=== PATIENT | male | born 1980 | race Hispanic/Latino ===

== ENCOUNTER 2018-09-11 19:11 | Emergency (ER) | payer BC ==
[2018-09-11] MEDS ORDERED: ONDANSETRON ODT 4 MG TAB ONE (19:50)
[2018-09-11] MEDS ORDERED: HYDROCODONE/ACETAMINOPHEN 5/325 MG TAB ONE (19:51)
== END 2018-09-11 20:22 | disposition home or self-care (01) ==
LOC: EDH 19:11
DX: S00.83XA Contusion of other part of head, initial encounter (principal); J32.9 Chronic sinusitis, unspecified; Z88.0 Allergy status to penicillin; W20.8XXA Other cause of strike by thrown, projected or falling object, initial encounter; Y93.89 Activity, other specified; Y92.69 Other specified industrial and construction area as the place of occurrence of the external cause; Y99.8 Other external cause status
CPT/HCPCS: 70450

== ENCOUNTER 2018-11-16 03:46 | Emergency (ER) | payer BC, OTHER ==
[2018-11-16] MEDS ORDERED: KETOROLAC TROMETHAMINE 60 MG/2 ML VIAL ONE (04:46)
[2018-11-16] MEDS ORDERED: DIAZEPAM 2 MG TAB ONE (04:46)
[2018-11-16 04:59] LABS: APPEARANCE,URINE Clear (CLEAR); BILIRUBIN,URINE Negative (NEGATIVE); COLOR,URINE Yellow (YELLOW); GLUCOSE, URINE (UA) Negative (NEGATIVE); KETONES,URINE Negative (NEGATIVE); LEUKOCYTE ESTERASE ,URINE Negative (NEGATIVE); NITRATE,URINE Negative (NEGATIVE); OCCULT BLOOD,URINE Negative (NEGATIVE); PROTEIN,URINE Negative (NEGATIVE)
[2018-11-16 05:07] LABS: AMPHET/METH SCREEN,URINE NEGATIVE (NEGATIVE); BARBITURATE SCREEN, URINE NEGATIVE (NEGATIVE); BENZODIAZEPINES SCREEN,URINE NEGATIVE (NEGATIVE); CANNABINOID SCREEN,URINE NEGATIVE (NEGATIVE); COCAINE SCREEN,URINE NEGATIVE (NEGATIVE); OPIATE SCREEN,URINE NEGATIVE (NEGATIVE); PHENCYCLIDINE SCREEN,URINE NEGATIVE (NEGATIVE)
== END 2018-11-16 06:05 | disposition home or self-care (01) ==
LOC: EDH 03:46
DX: M54.5 Low back pain (principal); Z88.0 Allergy status to penicillin; Z72.0 Tobacco use
CPT/HCPCS: 72100; 80305; 81003; 96372; 99285; J1885

== ENCOUNTER 2019-01-21 20:59 | Emergency (ER) | payer OTHER | END 2019-01-21 21:46 | disposition home or self-care (01) | LOC: EDH 20:59 | DX: R19.7 Diarrhea, unspecified (principal); R10.9 Unspecified abdominal pain; R50.9 Fever, unspecified; Z88.0 Allergy status to penicillin; Z72.0 Tobacco use | CPT/HCPCS: 87046; 87177 ==

== ENCOUNTER 2019-05-12 21:27 | Emergency (ER) | payer OTHER ==
[2019-05-12 22:07] LABS: APPEARANCE,URINE Clear (CLEAR); BILIRUBIN,URINE Negative (NEGATIVE); COLOR,URINE Dark Yellow (YELLOW); GLUCOSE, URINE (UA) Negative (NEGATIVE); KETONES,URINE Negative (NEGATIVE); LEUKOCYTE ESTERASE ,URINE Negative (NEGATIVE); NITRATE,URINE Negative (NEGATIVE); OCCULT BLOOD,URINE Negative (NEGATIVE); PH,URINE 5.5 (5.0-8.0); PROTEIN,URINE Trace mg/dL (NEGATIVE)
[2019-05-12 22:18] LABS: BACTERIA,URINE Few /HPF (None Seen); MUCUS,URINE Moderate LPF (None Seen); RBC,URINE 0-1 /HPF (0-1); SQUAMOUS EPITHELIAL CELL,UR 0-2 /HPF (0-2)
[2019-05-12] MEDS ORDERED: SODIUM CHLORIDE 0.9% 1000ML 1,000 ML IV ONE (22:38)
[2019-05-12 22:47] LABS: BASOPHILS % (AUTO) 0.3 % (0.0-5.0); EOSINOPHILS % (AUTO) 5.3 % (0.0-8.0); HEMATOCRIT 43.3 % (42-54); LYMPHOCYTES % (AUTO) 18.8 % (21.0-51.0); MEAN CORPUSCULAR HEMOGLOBIN 30.4 pg (27.0-33.0); MEAN CORPUSCULAR HGB CONC 33.3 g/dL (32.0-36.0); MEAN CORPUSCULAR VOLUME 91.5 fL (79-99); MONOCYTES % (AUTO) 7.9 % (3.0-13.0); NEUTROPHILS % (AUTO) 67.5 % (40.0-77.0); PLATELET COUNT (AUTO) 315 K/uL (130-400); RED BLOOD CELL COUNT(AUTO) 4.73 MIL/uL (4.50-6.20); RED CELL DISTRIBUTION WIDTH 13.1 % (11.0-15.5); WHITE BLOOD COUNT (AUTO) 10.1 K/uL (4.8-10.8)
[2019-05-12 22:58] LABS: CREATININE 0.9 mg/dL (0.5-1.5); POTASSIUM 3.5 mmol/L (3.5-5.1)
[2019-05-12] MEDS ORDERED: ONDANSETRON HCL 4 MG/2 ML VIAL ONE (23:01)
[2019-05-12] MEDS ORDERED: KETOROLAC TROMETHAMINE 30MG/ML ONE (23:01)
[2019-05-12 23:03] LABS: ALBUMIN 3.5 g/dL (3.5-5.0); BILIRUBIN,TOTAL 0.2 mg/dL (0.2-1.0); TOTAL PROTEIN, SERUM 7.6 g/dL (6.0-8.3)
== END 2019-05-12 23:58 | disposition home or self-care (01) ==
LOC: EDH 21:27
DX: A08.4 Viral intestinal infection, unspecified (principal); R11.2 Nausea with vomiting, unspecified; Z88.0 Allergy status to penicillin; Z72.0 Tobacco use
CPT/HCPCS: 36415; 80053; 81001; 83690; 85025; 96361; 96374; 96375; 99284; J1885; J2405; J7030

== ENCOUNTER 2019-06-24 07:23 | Emergency (ER) | payer OTHER ==
[2019-06-24] MEDS ORDERED: TETANUS/DIPHTHERIA TOXOID [ADULT] 0.5 ML VIAL IM ONE (07:50)
[2019-06-24] MEDS ORDERED: KETOROLAC TROMETHAMINE 60 MG/2 ML VIAL ONE (08:12)
== END 2019-06-24 08:37 | disposition home or self-care (01) ==
LOC: EDH 07:23
DX: S93.401A Sprain of unspecified ligament of right ankle, initial encounter (principal); S80.811A Abrasion, right lower leg, initial encounter; M25.561 Pain in right knee; Z72.0 Tobacco use; Z88.0 Allergy status to penicillin; W18.39XA Other fall on same level, initial encounter; Y93.89 Activity, other specified; Y92.89 Other specified places as the place of occurrence of the external cause; Y99.8 Other external cause status
CPT/HCPCS: 29515; 73562; 73610; 90471; 90714; 96372; 99284; J1885

== ENCOUNTER 2019-11-07 18:48 | Inpatient (IN) | payer BC, OTHER ==
[~2019-11-07] VITALS: Ht 162.6 cm; Wt 93.6 kg
[2019-11-07 20:37] LABS: APPEARANCE,URINE Clear (CLEAR); BILIRUBIN,URINE Small (NEGATIVE); COLOR,URINE Dark Yellow (YELLOW); GLUCOSE, URINE (UA) Negative (NEGATIVE); KETONES,URINE 15 mg/dL (NEGATIVE); LEUKOCYTE ESTERASE ,URINE Negative (NEGATIVE); NITRATE,URINE Negative (NEGATIVE); OCCULT BLOOD,URINE Negative (NEGATIVE); PROTEIN,URINE POS 2+ mg/dL (NEGATIVE)
[2019-11-07 20:47] LABS: RAPID GROUP A STREP NEGATIVE (NEGATIVE)
[2019-11-07 20:54] LABS: BASOPHILS % (AUTO) 0.2 % (0.0-5.0); HEMATOCRIT 44.9 % (42-54); LYMPHOCYTES % (AUTO) 8.4 % (21.0-51.0); MEAN CORPUSCULAR HEMOGLOBIN 31.5 pg (27.0-33.0); MEAN CORPUSCULAR HGB CONC 35.6 g/dL (32.0-36.0); MEAN CORPUSCULAR VOLUME 88.4 fL (79-99); NEUTROPHILS % (AUTO) 81.2 % (40.0-77.0); PLATELET COUNT (AUTO) 235 K/uL (130-400); RED BLOOD CELL COUNT(AUTO) 5.08 MIL/uL (4.50-6.20); RED CELL DISTRIBUTION WIDTH 12.1 % (11.0-15.5); WHITE BLOOD COUNT (AUTO) 9.6 K/uL (4.8-10.8)
[2019-11-07] MEDS ORDERED: LIDOCAINE HCL-MPF 1% 2ML VIAL ONE (20:56)
[2019-11-07] MEDS ORDERED: ONDANSETRON HCL 4 MG/2 ML VIAL ONE (20:56)
[2019-11-07] MEDS ORDERED: CEFTRIAXONE SODIUM 1 GM ONE (20:57)
[2019-11-07] MEDS ORDERED: ACETAMINOPHEN EXTRA STRENGTH 500 MG TABLET ONE (20:57)
[2019-11-07 20:59] LABS: BACTERIA,URINE Few /HPF (None Seen); RBC,URINE 0-1 /HPF (0-1); SQUAMOUS EPITHELIAL CELL,UR Few /HPF (0-2); WBC,URINE 0-1 /HPF (0-1)
[2019-11-07 21:00] LABS: MUCUS,URINE Moderate LPF (None Seen)
[2019-11-07 21:05] LABS: CREATININE 0.8 mg/dL (0.5-1.5); POTASSIUM 3.9 mmol/L (3.5-5.1)
[2019-11-07 21:09] LABS: ALBUMIN 3.3 g/dL (3.5-5.0); BILIRUBIN,TOTAL 0.5 mg/dL (0.2-1.0); TOTAL PROTEIN, SERUM 8.5 g/dL (6.0-8.3)
[2019-11-07 21:13] LABS: ABG BASE EXCESS 2.5 mmol/L (-2.0-3.0); ABG HCO3 24.9 mmol/L (21.0-28.0); ABG OXYGEN SATURATION 98.7 % (95.0-99.0); ABG PCO2 32 mmHg (35-48)
[2019-11-07 21:27] LABS: B-TYPE NATRIURETIC PEPTIDE < 5 pg/mL (0-100)
[2019-11-07] MEDS ORDERED: DEXAMETHASONE SOD PHOSPHATE 10MG/ML 1ML VIAL ONE (23:15)
[2019-11-07] MEDS ORDERED: LEVOFLOXACIN 500 MG/D5W 100 ML 100 ML ONE (23:16)
[2019-11-08] MEDS ORDERED: SODIUM CHLORIDE 0.9% 1000ML 1,000 ML IV SCH (00:52)
[2019-11-08] MEDS ORDERED: DIPHENHYDRAMINE HCL 25 MG CAPSULE PO PRN (01:00)
[2019-11-08] MEDS ORDERED: NITROGLYCERIN 0.4 MG SL TAB SL PRN (01:00)
[2019-11-08] MEDS ORDERED: ONDANSETRON HCL 4 MG/2 ML VIAL IV PRN (01:00)
[2019-11-08] MEDS ORDERED: ALBUTEROL INHALER 90MCG/INH IH PRN (01:00)
[2019-11-08] MEDS ORDERED: SODIUM CHLORIDE 0.9% 1000ML 1,000 ML IV PRN (01:00)
[2019-11-08] MEDS ORDERED: ACETAMINOPHEN 325 MG TAB PO PRN (01:00)
[2019-11-08] MEDS ORDERED: SODIUM CHLORIDE 0.9% 1000ML 1,000 ML IV ONE (01:20)
[2019-11-08] MEDS ORDERED: ENOXAPARIN SODIUM 100 MG/1 ML SQ ONE (01:22)
[2019-11-08] MEDS ORDERED: IOHEXOL-350 75 ML VIAL IV ONE (01:33)
[2019-11-08] MEDS ORDERED: METHYLPREDNISOLONE SOD SUCC 40MG/ML 1ML IVP SCH (06:00)
[2019-11-08] MEDS ORDERED: METHYLPREDNISOLONE SOD SUCC 125MG/2ML VIAL ONE (06:21)
[2019-11-08 06:41] LABS: HEMATOCRIT 41.6 % (42-54); MEAN CORPUSCULAR HEMOGLOBIN 30.9 pg (27.0-33.0); MEAN CORPUSCULAR HGB CONC 34.9 g/dL (32.0-36.0); MEAN CORPUSCULAR VOLUME 88.7 fL (79-99); PLATELET COUNT (AUTO) 206 K/uL (130-400); RED BLOOD CELL COUNT(AUTO) 4.69 MIL/uL (4.50-6.20); WHITE BLOOD COUNT (AUTO) 6.1 K/uL (4.8-10.8)
[2019-11-08 07:29] LABS: INR 1.06 (0.85-1.15); PROTHROMBIN TIME 11.4 SEC (9.6-11.6)
[2019-11-08] MEDS ORDERED: PANTOPRAZOLE SODIUM 40 MG TABLET.DR ONE (08:20)
[2019-11-08 08:24] LABS: HEMOGLOBIN A1C 5.8 % (4.0-6.0)
[2019-11-08 08:36] LABS: ALBUMIN 2.9 g/dL (3.5-5.0); BILIRUBIN,TOTAL 0.4 mg/dL (0.2-1.0); CREATININE 0.8 mg/dL (0.5-1.5); MAGNESIUM 2.3 mg/dL (1.80-2.40); POTASSIUM 4.3 mmol/L (3.5-5.1); TOTAL PROTEIN, SERUM 7.7 g/dL (6.0-8.3)
[2019-11-08 08:44] LABS: BAND NEUTROPHILS % (MANUAL) 1 % (0-2); BASOPHILS % (MANUAL) 1 % (0-2); LYMPHOCYTES % (MANUAL) 6 % (22-44); MONOCYTES % (MANUAL) 3 % (2-9); PLATELET MORPHOLOGY COMMENT ADEQUATE; REACTIVE LYMPHOCYTES 1 % (0-0); SEGMENTED NEUTROPHILS % 88 % (40-70)
[2019-11-08] MEDS: PANTOPRAZOLE SODIUM 40 MG TABLET.DR PO SCH (09:00)
[2019-11-08 09:28] LABS: CRP QUANTITATIVE 177.1 mg/L (0.00-9.0)
[2019-11-08] MEDS ORDERED: NITROGLYCERIN 1GM/1 INCH PACKET TD ONE (18:45)
[2019-11-08] MEDS ORDERED: MORPHINE SULFATE 2 MG/ML 1ML SYG ONE (18:45)
[2019-11-08] MEDS: NITROGLYCERIN 1GM/1 INCH PACKET TD SCH (19:00)
[2019-11-08] MEDS ORDERED: ASPIRIN 325MG EC TAB 325 MG TABLET.DR PO SCH (20:00)
[2019-11-08] MEDS ORDERED: ACETAMINOPHEN EXTRA STRENGTH 500 MG TABLET ONE (20:58)
[2019-11-08] MEDS: ENOXAPARIN SODIUM 100 MG/1 ML SQ SCH (21:00)
[2019-11-08] MEDS: LEVOFLOXACIN 500 MG/D5W 100 ML 100 ML IV SCH (21:00)
[2019-11-08] MEDS ORDERED: METHYLPREDNISOLONE SOD SUCC 40MG/ML 1ML ONE (22:01)
[2019-11-08] MEDS ORDERED: LEVOFLOXACIN 500 MG/D5W 100 ML 100 ML ONE (22:01)
[2019-11-08 23:04] LABS: CREATINE KINASE, TOTAL 111 U/L (21-232); MYOGLOBIN 73 ng/mL (10-92); TROPONIN I < 0.04 ng/mL (0.00-0.06)
[2019-11-09] MEDS ORDERED: ENOXAPARIN SODIUM 100 MG/1 ML SQ ONE ×2 (01:07→09:59)
[2019-11-09] MEDS ORDERED: NITROGLYCERIN 1GM/1 INCH PACKET TD ONE ×3 (01:07→18:23)
[2019-11-09 07:23] LABS: CHOLESTEROL 157 mg/dL (<200); CREATINE KINASE, TOTAL 110 U/L (21-232); HDL CHOLESTEROL 19 mg/dL (29-71); LACTATE DEHYDROGENASE 296 U/L (81-234); LDL DIRECT 118 mg/dL (0-99); MYOGLOBIN 54 ng/mL (10-92); TRIGLYCERIDES 118 mg/dL (30-200); TROPONIN I < 0.04 ng/mL (0.00-0.06)
[2019-11-09] MEDS: ENOXAPARIN SODIUM 100 MG/1 ML SQ SCH ×2 (09:00→21:00)
[2019-11-09] MEDS: ASPIRIN 81MG TAB.CHEW PO SCH (09:00)
[2019-11-09] MEDS: PANTOPRAZOLE SODIUM 40 MG TABLET.DR PO SCH (09:00)
[2019-11-09] MEDS ORDERED: MORPHINE SULFATE 2 MG/ML 1ML SYG ONE (09:26)
[2019-11-09] MEDS ORDERED: ASPIRIN 81MG TAB.CHEW ONE (09:59)
[2019-11-09] MEDS ORDERED: PANTOPRAZOLE SODIUM 40 MG TABLET.DR ONE (10:00)
[2019-11-09] MEDS ORDERED: METHYLPREDNISOLONE SOD SUCC 40MG/ML 1ML ONE ×2 (10:00→18:23)
[2019-11-09] MEDS ORDERED: ACETAMINOPHEN 325 MG TAB ONE ×2 (10:25→19:49)
[2019-11-09] MEDS: NITROGLYCERIN 1GM/1 INCH PACKET TD SCH ×2 (11:00→19:00)
--- NOTE | 2019-11-09 13:25 | NUR ---
UNABLE TO DO INITIAL CASE MANAGEMENT ASSESSMENT- PHONE CALLS X2 TO BOTH NUMBERS IN CHART- " NOT ABLE TO RECEIVE CALLS AT THIS TIME " CM TO FOLLOW Addendum: 11/09/19 at 1326 by AJ CONRAD RN CM Amended: Links added.
[2019-11-09] MEDS: METHYLPREDNISOLONE SOD SUCC 40MG/ML 1ML IVP SCH ×2 (14:00→22:00)
[2019-11-09] MEDS: LEVOFLOXACIN 500 MG/D5W 100 ML 100 ML IV SCH (21:00)
[2019-11-09] MEDS ORDERED: LEVOFLOXACIN 500 MG/D5W 100 ML 100 ML ONE (23:40)
[2019-11-10] VITALS (7 sets, daily range): BP systolic 97–132; BP diastolic 50–73
[2019-11-10] MEDS: NITROGLYCERIN 1GM/1 INCH PACKET TD SCH ×2 (02:05→08:08)
[2019-11-10] MEDS: MORPHINE SULFATE 2 MG/ML 1ML SYG IVP PRN ×2 (02:06→21:26)
[2019-11-10] MEDS: METHYLPREDNISOLONE SOD SUCC 40MG/ML 1ML IVP SCH ×3 (05:01→21:06)
--- NOTE | 2019-11-10 07:19 | NUR ---
BEDSIDE REPORT GIVEN TO DENNIS CLANCY; VSS; NO S/S ACUTE DISTRESS NOTED; BED LOW CALL CARPENTER WITHIN REACH; RELINQUISHED PT CARE AT THIS TIME
--- NOTE | 2019-11-10 08:00 | NUR ---
ENCOUNTERED PATIENT ON PRONE POSITION, COUGHING, AND C/O SOB BUT VOICED THAT HE FEELS BETTER THAN WHEN HE CAME IN. O2 INCREASED TO 4L. PATIENT IMMEDIATELY VERBALIZED RELIEF. FULL ASSESSMENT DONE. MAINTAINED ENHANCED ISOLATION FOR POSITIVE COVID-19. ENCOURAGED HANDWASHING. CALL LIGHT WITHIN REACH.
[2019-11-10 08:07] LABS: CRP QUANTITATIVE 280.4 mg/L (0.00-9.0)
[2019-11-10] MEDS: ASPIRIN 81MG TAB.CHEW PO SCH (08:08)
[2019-11-10] MEDS: PANTOPRAZOLE SODIUM 40 MG TABLET.DR PO SCH (08:08)
[2019-11-10] MEDS: ENOXAPARIN SODIUM 100 MG/1 ML SQ SCH ×2 (08:09→21:06)
[2019-11-10] MEDS: ACETAMINOPHEN 325 MG TAB PO PRN (08:09)
--- NOTE | 2019-11-10 12:54 | NUR ---
DR. ANGUIANO IS IN TO SEE PATIENT.
[2019-11-10] MEDS: BENZONATATE 100 MG CAPSULE PO PRN ×2 (13:33→23:56)
--- NOTE | 2019-11-10 13:40 | NUR ---
PT CALLED FOR HELP. VOICED THAT HE CANNOT BREATHE. FOUND PATIENT STANDING BY HIS BED, O2 AT 4L PER NASAL CANNULA, DYSPNEIC, AND DIAPHORETIC. ASSISTED PATIENT BACK TO BED. HE SAT AT THE EDGE OF BED WHILE I ENCOURAGED DEEP BREATHING. O2 SAT WAS 96% AT 4L. INCREASED FLOW TO 8L REQUESTED BY PATIENT. PATIENT VOICED THAT HE HAS HX OF ANXIETY AND PTSD. I REASSURED PATIENT THAT HIS O2 IS OK. HE STARTED CALMING DOWN, DEEP BREATHING, AND HE FELT BETTER. I KEPT HIM ON 4L O2.
--- NOTE | 2019-11-10 14:59 | NUR ---
CM NOTE/ATTEMPTED IA UNSUCCESSFUL PATIENT VERY SHORT OF BREATH PER PRIMARY NURSE, UNABLE TO TOLERATE CONVERSATIONS AT TIMES. STACIA SAVAGE ON FACE SHEET CALLED, NO ANSWER.IA PENDING, CM TO FOLLOW UP ACCORDINGLY.
[2019-11-10] MEDS: LEVOFLOXACIN 500 MG/D5W 100 ML 100 ML IV SCH (21:06)
[2019-11-11 04:12] VITALS: BP 123/72
--- NOTE | 2019-11-11 07:14 | NUR ---
BEDSIDE REPORT GIVEN TO DENNIS CLANCY; PT REMAINS ON NONREBREATHER SINCE MIDNIGHT; PT HAS SEVERE ANXIETY ATTACKS; OTHERWISE NO S/S ACUTE DISTRESS NOTED; RELINQUISHED PT CARE AT THIS TIME
[2019-11-11 07:48] LABS: BASOPHILS % (AUTO) 0.2 % (0.0-5.0); HEMATOCRIT 39.6 % (42-54); LYMPHOCYTES % (AUTO) 2.7 % (21.0-51.0); MEAN CORPUSCULAR HEMOGLOBIN 30.7 pg (27.0-33.0); MEAN CORPUSCULAR HGB CONC 34.3 g/dL (32.0-36.0); MEAN CORPUSCULAR VOLUME 89.4 fL (79-99); MONOCYTES % (AUTO) 2.9 % (3.0-13.0); NEUTROPHILS % (AUTO) 93.7 % (40.0-77.0); PLATELET COUNT (AUTO) 351 K/uL (130-400); RED BLOOD CELL COUNT(AUTO) 4.43 MIL/uL (4.50-6.20); RED CELL DISTRIBUTION WIDTH 12.4 % (11.0-15.5); WHITE BLOOD COUNT (AUTO) 19.7 K/uL (4.8-10.8)
[2019-11-11 08:05] LABS: ALBUMIN 2.7 g/dL (3.5-5.0); BILIRUBIN,TOTAL 0.5 mg/dL (0.2-1.0); CREATININE 0.8 mg/dL (0.5-1.5); TOTAL PROTEIN, SERUM 7.9 g/dL (6.0-8.3)
[2019-11-11 08:18] VITALS: BP 125/58
[2019-11-11] MEDS ORDERED: GUAIFENESIN-CODEINE 5 ML SYRUP ONE (08:41)
[2019-11-11] MEDS: PANTOPRAZOLE SODIUM 40 MG TABLET.DR PO SCH (08:48)
[2019-11-11] MEDS: METHYLPREDNISOLONE SOD SUCC 40MG/ML 1ML IVP SCH ×3 (08:48→20:54)
[2019-11-11] MEDS: ASPIRIN 81MG TAB.CHEW PO SCH (08:48)
[2019-11-11] MEDS: ENOXAPARIN SODIUM 100 MG/1 ML SQ SCH ×2 (08:49→20:53)
[2019-11-11 09:37] LABS: CRP QUANTITATIVE 338.8 mg/L (0.00-9.0)
[2019-11-11] MEDS ORDERED: DOXYCYCLINE 100MG+NS 250ML 250 ML IV SCH (10:00)
--- NOTE | 2019-11-11 10:00 | NUR ---
INFORMED DR. ANGUIANO THAT PATIENT IS NOW ON NRB. O2 SAT: 96%. PATIENT DID MENTION YESTERDAY THAT HE HAS HX OF PTSD AND ALSO JUST QUIT CHRONIC SMOKING. MD ORDERED FOR LIBRIUM AND NICOTINE PATCH. PT ALSO COMPLAINED THAT TESSALON PERLS ARE NOT WORKING AND REQUESTED FOR SOMETHING STRONGER. MD ORDERED FOR ROBITUSSIN WITH CODEINE. WILL ALSO REPEAT CXRAY FOR HYPOXIA. REPORTED TO MD LATEST LAB RESULTS.
[2019-11-11] MEDS: CHLORDIAZEPOXIDE HCL 25 MG CAP PO SCH ×2 (10:15→20:51)
--- NOTE | 2019-11-11 11:00 | NUR ---
RT WEANED PT OFF NRB. O2 SAT NOW 95% ON VENTI-MASK AT 50%.
[2019-11-11] MEDS ORDERED: CHLORDIAZEPOXIDE HCL 25 MG CAP ONE (11:08)
[2019-11-11] MEDS: NICOTINE 21 MG/ 24 HR PATCH TD SCH (11:11)
[2019-11-11 12:00] VITALS: BP 117/70
[2019-11-11] MEDS: GUAIFENESIN-CODEINE 5 ML SYRUP PO PRN ×2 (15:50→21:50)
[2019-11-11 16:00] VITALS: BP 123/67
--- NOTE | 2019-11-11 16:09 | NUR ---
CM NOTE CM attempted to call both numbers on facesheet. Message "Not accepting calls". Unable to leave message. Per nursing, pt still with dyspnea and unable to answer questions. States pt had been making calls previously from phone. Nursing to record number if or when family calls. Pt is self pay and from home per medical record. Plan to home with possible home o2 needs.
--- NOTE | 2019-11-11 16:51 | NUR ---
o2 sat: 97% on venti-mask 50% fio2. Patient is resting on bed in a high hines's position.
[2019-11-11 19:10] VITALS: BP 127/72
[2019-11-11] MEDS: DOXYCYCLINE HYCLATE 100 MG TABLET PO SCH (20:51)
[2019-11-11] MEDS: LEVOFLOXACIN 500 MG/D5W 100 ML 100 ML IV SCH (20:51)
[2019-11-11] MEDS ORDERED: CHLORDIAZEPOXIDE HCL 25 MG CAP PO SCH (21:00)
--- NOTE | 2019-11-11 22:00 | NUR ---
PT O2 97%. COUGHING NOTED. GIVEN PRN ROBITUSSIN WITH CODEINE. STATES IS ABLE TO SLEEP WITH THAT MEDICATION. SOB. ON VENTI MASK. SOB. CONTINUES ON ABTS.
[2019-11-11 23:21] VITALS: BP 127/69
[2019-11-12 03:05] VITALS: BP 139/81
--- NOTE | 2019-11-12 04:00 | NUR ---
PLASMA INITIATED AT THIS TIME. PT DID EXPERIENCE SOB. WAS NOT TRANSFUSION RELATED. PT STATES HE EXPERIENCES THIS EVERY FEW HOURS. O2 LEVEL DROPPED TO 85%. NON REBREATHER 15L AT 100% COUGH MEDICATION PRN GIVEN. PT WENT UP TO 95%.
[2019-11-12] MEDS: GUAIFENESIN-CODEINE 5 ML SYRUP PO PRN ×4 (04:27→22:46)
[2019-11-12] MEDS: METHYLPREDNISOLONE SOD SUCC 40MG/ML 1ML IVP SCH ×2 (06:00→15:11)
[2019-11-12 06:55] LABS: BASOPHILS % (AUTO) 0.1 % (0.0-5.0); HEMATOCRIT 37.8 % (42-54); LYMPHOCYTES % (AUTO) 5.4 % (21.0-51.0); MEAN CORPUSCULAR HEMOGLOBIN 31.3 pg (27.0-33.0); MEAN CORPUSCULAR HGB CONC 34.4 g/dL (32.0-36.0); MEAN CORPUSCULAR VOLUME 90.9 fL (79-99); MONOCYTES % (AUTO) 7.4 % (3.0-13.0); NEUTROPHILS % (AUTO) 86.5 % (40.0-77.0); PLATELET COUNT (AUTO) 388 K/uL (130-400); RED BLOOD CELL COUNT(AUTO) 4.16 MIL/uL (4.50-6.20); RED CELL DISTRIBUTION WIDTH 12.3 % (11.0-15.5); WHITE BLOOD COUNT (AUTO) 11.2 K/uL (4.8-10.8)
[2019-11-12] MEDS: ASPIRIN 81MG TAB.CHEW PO SCH (08:08)
[2019-11-12] MEDS: DOXYCYCLINE HYCLATE 100 MG TABLET PO SCH (08:09)
[2019-11-12] MEDS: CHLORDIAZEPOXIDE HCL 25 MG CAP PO SCH ×2 (08:10→22:23)
[2019-11-12] MEDS: ENOXAPARIN SODIUM 100 MG/1 ML SQ SCH ×2 (08:10→22:30)
[2019-11-12] MEDS: PANTOPRAZOLE SODIUM 40 MG TABLET.DR PO SCH (08:10)
[2019-11-12] MEDS: NICOTINE 21 MG/ 24 HR PATCH TD SCH (08:10)
[2019-11-12 08:36] LABS: ALBUMIN 2.5 g/dL (3.5-5.0); BILIRUBIN,TOTAL 0.4 mg/dL (0.2-1.0); CREATININE 0.8 mg/dL (0.5-1.5); CRP QUANTITATIVE 192.9 mg/L (0.00-9.0); POTASSIUM 4.1 mmol/L (3.5-5.1); TOTAL PROTEIN, SERUM 7.4 g/dL (6.0-8.3)
[2019-11-12 09:26] VITALS: BP 130/77
[2019-11-12] MEDS ORDERED: SODIUM CHLORIDE 0.9% 250 ML IV ONE (12:00)
[2019-11-12 12:23] VITALS: BP 117/61
--- NOTE | 2019-11-12 14:45 | NUR ---
CM NOTE/IA UNSUCCESSFUL PATIENT SOB AND NOT ABLE TO TALK TO ME PER PRIMARY NURSE. NUMBER ON FACESHEET FOR GIRLFRIEND NOT ACCEPTING CALLS. NURSE AWARE TO TAKE NUMBER DOWN OF FAMILY IF CALL COMES IN. CM TO FOLLOW UP ACCORDINGLY.
[2019-11-12 17:17] VITALS: BP 138/69
[2019-11-12 19:00] VITALS: BP 128/54
[2019-11-12] MEDS: ALBUTEROL INHALER 90MCG/INH IH SCH ×2 (19:00→23:19)
[2019-11-12 20:37] LABS: ABG BASE EXCESS 0.1 mmol/L (-2.0-3.0); ABG HCO3 23.6 mmol/L (21.0-28.0); ABG OXYGEN SATURATION 97.8 % (95.0-99.0); ABG PCO2 35 mmHg (35-48)
[2019-11-12] MEDS: LEVOFLOXACIN 500 MG/D5W 100 ML 100 ML IV SCH (22:23)
[2019-11-12] MEDS: DEXAMETHASONE SOD PHOSPHATE 4 MG/ML 1ML VIAL IV SCH (22:23)
[2019-11-12] MEDS: GUAIFENESIN 600 MG TABLET.ER PO SCH (22:29)
[2019-11-12 23:56] VITALS: BP 118/59
[2019-11-13] VITALS (7 sets, daily range): BP systolic 108–160; BP diastolic 41–76
[2019-11-13] MEDS: ALBUTEROL INHALER 90MCG/INH IH SCH ×6 (02:52→22:13)
[2019-11-13] MEDS: BENZONATATE 100 MG CAPSULE PO PRN (03:05)
[2019-11-13 08:07] LABS: BASOPHILS % (AUTO) 0.1 % (0.0-5.0); HEMATOCRIT 40.5 % (42-54); LYMPHOCYTES % (AUTO) 6.1 % (21.0-51.0); MEAN CORPUSCULAR HGB CONC 34.6 g/dL (32.0-36.0); MEAN CORPUSCULAR VOLUME 89.6 fL (79-99); MONOCYTES % (AUTO) 7.1 % (3.0-13.0); PLATELET COUNT (AUTO) 425 K/uL (130-400); RED BLOOD CELL COUNT(AUTO) 4.52 MIL/uL (4.50-6.20); RED CELL DISTRIBUTION WIDTH 12.1 % (11.0-15.5); WHITE BLOOD COUNT (AUTO) 10.1 K/uL (4.8-10.8)
[2019-11-13] MEDS: PHARMACY COMMUNICATION MISC SCH ×2 (08:30→16:30)
[2019-11-13] MEDS: ASPIRIN 81MG TAB.CHEW PO SCH (08:40)
[2019-11-13] MEDS: CHLORDIAZEPOXIDE HCL 25 MG CAP PO SCH ×2 (08:40→20:35)
[2019-11-13] MEDS: NICOTINE 21 MG/ 24 HR PATCH TD SCH (08:40)
[2019-11-13] MEDS: PANTOPRAZOLE SODIUM 40 MG TABLET.DR PO SCH (08:40)
[2019-11-13] MEDS: ENOXAPARIN SODIUM 100 MG/1 ML SQ SCH ×2 (08:41→20:39)
[2019-11-13] MEDS: DEXAMETHASONE SOD PHOSPHATE 4 MG/ML 1ML VIAL IV SCH ×2 (08:41→20:29)
--- NOTE | 2019-11-13 09:30 | NUR ---
VENTI MASK PATIENT AWAKE AND ORIENTED, DENIES CHEST PAIN. PT ON NC AT 4L , O2 SAT 89-91 AND SLIGHT SOB. VENTI MASK RE-APPLIED 50% O2. PT MADE AWARE TO PRONE .
[2019-11-13 09:39] LABS: ALBUMIN 2.6 g/dL (3.5-5.0); BILIRUBIN,TOTAL 0.4 mg/dL (0.2-1.0); CREATININE 0.7 mg/dL (0.5-1.5); CRP QUANTITATIVE 73.3 mg/L (0.00-9.0); TOTAL PROTEIN, SERUM 7.5 g/dL (6.0-8.3)
--- NOTE | 2019-11-13 11:30 | NUR ---
O2 PATIENT IN SITTING POSITION IN BED, O2 PER VENTI MASK, O2 SAT 94-96%, DENIES SOB, ENCOURAGED TO PRONE. CALL LIGHT WITHIN REACH.
--- NOTE | 2019-11-13 13:45 | NUR ---
PM ASSESSMENT PT AWAKE AND ALERT, IN SITTING POSITION. O2 PER VENTI MASK, O2 SAT 96-98%, DENIES SOB. CALL LIGHT WITHIN REACH.
[2019-11-13] MEDS: GUAIFENESIN 600 MG TABLET.ER PO SCH ×2 (14:40→20:35)
--- NOTE | 2019-11-13 15:00 | NUR ---
ASSESSMENT PT IN SITTING POSITION, O2 SAT 89-90%, ENCOURAGED TO LAY IN PRONE POSITION. O2 SAT UP TO 92-93% AFTER PRONE POSITION. CALL LIGHT WITHIN REACH, TELEMETRY MONITORING.
--- NOTE | 2019-11-13 15:45 | NUR ---
REPORT PT TO BE TRANSFERRED TO ROOM 224, REPORT CALLED. O2 PER VENTI MASK AT 50%.
--- NOTE | 2019-11-13 16:00 | NUR ---
TRANSFERRED PT TRANSFERRED TO ROOM 224 PER CHARGE NURSE [place] RN, O2 PER VENTI MASK AT 50%, NO SOB OR LABORED RESPIRATIONS, PT AWAKE, ALERT, AND ORIENTED.
[2019-11-13] MEDS: LEVOFLOXACIN 500 MG/D5W 100 ML 100 ML IV SCH (20:36)
[2019-11-13] MEDS: GUAIFENESIN-CODEINE 5 ML SYRUP PO PRN (23:32)
[2019-11-14] MEDS: PHARMACY COMMUNICATION MISC SCH ×3 (00:30→16:30)
[2019-11-14 03:55] VITALS: BP 109/61
[2019-11-14] MEDS: ALBUTEROL INHALER 90MCG/INH IH SCH ×5 (07:00→23:00)
[2019-11-14 08:04] VITALS: BP 107/63
[2019-11-14] MEDS: GUAIFENESIN-CODEINE 5 ML SYRUP PO PRN ×2 (09:07→20:40)
[2019-11-14] MEDS: PANTOPRAZOLE SODIUM 40 MG TABLET.DR PO SCH (09:07)
[2019-11-14] MEDS: GUAIFENESIN 600 MG TABLET.ER PO SCH ×2 (09:08→20:27)
[2019-11-14] MEDS: ASPIRIN 81MG TAB.CHEW PO SCH (09:08)
[2019-11-14] MEDS: CHLORDIAZEPOXIDE HCL 25 MG CAP PO SCH ×2 (09:08→20:27)
[2019-11-14] MEDS: DEXAMETHASONE SOD PHOSPHATE 4 MG/ML 1ML VIAL IV SCH ×2 (09:09→20:25)
[2019-11-14] MEDS: ENOXAPARIN SODIUM 100 MG/1 ML SQ SCH (09:12)
[2019-11-14] MEDS: NICOTINE 21 MG/ 24 HR PATCH TD SCH (09:12)
[2019-11-14 12:00] VITALS: BP 106/59
[2019-11-14 15:36] VITALS: BP 119/73
--- NOTE | 2019-11-14 16:48 | NUR ---
PT O2 SATURATION HAS BEEN 96-97% ON VENTI MASK 50% AT 15 L. NO NOTABLE INCREASED LABORED RESPIRATIONS NOTED OR REPORTED.PT CONTINUES TO SELF PRONE WITH INTERMITTENT PRODUCTIVE COUGHS. PT CONTINUES TO BE ALERT AND ORIENTED X3, REPORTS GENERALIZED SORENESS IN UPPER BACK AND CHEST WITH COUGHS. PT REPORTS REPOSITIONING HELPS WITH THE DISCOMFORT. WILL MEDICATE PRN FOR RELIEF. CALL LIGHT AND POSSESSIONS WITHIN REACH.
--- NOTE | 2019-11-14 16:53 | NUR ---
PULMONARY ORDERS TO WEAN PT TOLERATED, ORDER ENTERED.
[2019-11-14] MEDS: BENZONATATE 100 MG CAPSULE PO PRN (17:20)
[2019-11-14] MEDS: ACETAMINOPHEN 325 MG TAB PO PRN (17:21)
[2019-11-14 19:39] VITALS: BP 115/67
[2019-11-14] MEDS: ENOXAPARIN SODIUM 40 MG/0.4 ML SYRINGE SQ SCH (20:26)
[2019-11-14] MEDS: LEVOFLOXACIN 500 MG/D5W 100 ML 100 ML IV SCH (20:27)
[2019-11-14 23:29] VITALS: BP 118/71
[2019-11-15] MEDS: PHARMACY COMMUNICATION MISC SCH ×4 (00:30→19:34)
[2019-11-15] MEDS: ALBUTEROL INHALER 90MCG/INH IH SCH ×6 (03:00→23:00)
[2019-11-15 03:55] VITALS: BP 113/56
[2019-11-15 06:00] LABS: BASOPHILS % (AUTO) 0.2 % (0.0-5.0); EOSINOPHILS % (AUTO) 0.1 % (0.0-8.0); HEMATOCRIT 42.6 % (42-54); LYMPHOCYTES % (AUTO) 11.1 % (21.0-51.0); MEAN CORPUSCULAR HEMOGLOBIN 30.3 pg (27.0-33.0); MEAN CORPUSCULAR HGB CONC 34.3 g/dL (32.0-36.0); MEAN CORPUSCULAR VOLUME 88.4 fL (79-99); MONOCYTES % (AUTO) 9.2 % (3.0-13.0); NEUTROPHILS % (AUTO) 77.8 % (40.0-77.0); PLATELET COUNT (AUTO) 414 K/uL (130-400); RED BLOOD CELL COUNT(AUTO) 4.82 MIL/uL (4.50-6.20); RED CELL DISTRIBUTION WIDTH 11.8 % (11.0-15.5); WHITE BLOOD COUNT (AUTO) 9.8 K/uL (4.8-10.8)
[2019-11-15 06:29] LABS: ALBUMIN 2.7 g/dL (3.5-5.0); BILIRUBIN,TOTAL 0.4 mg/dL (0.2-1.0); CREATININE 0.8 mg/dL (0.5-1.5); CRP QUANTITATIVE 20.1 mg/L (0.00-9.0); POTASSIUM 4.4 mmol/L (3.5-5.1)
[2019-11-15 08:30] VITALS: BP 112/67
[2019-11-15] MEDS: CHLORDIAZEPOXIDE HCL 25 MG CAP PO SCH ×2 (09:42→19:54)
[2019-11-15] MEDS: GUAIFENESIN 600 MG TABLET.ER PO SCH ×2 (09:42→19:54)
[2019-11-15] MEDS: ASPIRIN 81MG TAB.CHEW PO SCH (09:42)
[2019-11-15] MEDS: ENOXAPARIN SODIUM 40 MG/0.4 ML SYRINGE SQ SCH ×2 (09:44→19:54)
[2019-11-15] MEDS: NICOTINE 21 MG/ 24 HR PATCH TD SCH (09:45)
[2019-11-15] MEDS: GUAIFENESIN-CODEINE 5 ML SYRUP PO PRN ×2 (09:46→20:04)
[2019-11-15] MEDS: PANTOPRAZOLE SODIUM 40 MG TABLET.DR PO SCH (10:58)
[2019-11-15] MEDS: DEXAMETHASONE SOD PHOSPHATE 4 MG/ML 1ML VIAL IV SCH ×2 (10:59→19:53)
[2019-11-15 11:00] VITALS: BP 107/66
--- NOTE | 2019-11-15 11:08 | NUR ---
DC PLAN CALLED PATIENT ROOM NO ANSWER. TRIED TO CALLING GIRL FRIEND ON FACE SHEET. NO ANSWER SAYS PHONE DISCONNECTED. CALLED PATIENT WORK SPOKE TO HIS PURCHASING ENGINEER BRANDEN LEIVA [phone]. SAID HE WILL TEXT PATIENT TO GIVE HIM MY NUMBER FOR A CALL BACK. Addendum: 11/15/19 at 1110 by KAILYN PIKE RN CM Amended: Links added.
--- NOTE | 2019-11-15 11:46 | NUR ---
RDSCREEN - LOS X 8 Pt admitted with Viral PNA. Positive COVID-19. Attempt to call Pt with busy signal x2. Pt tolerating Heart Healthy diet order with no report of GI distress, PO intake at 100% as per EMR. WBC 9.9. Prone positioning as tolerated, per EMR. Worsening SOB as per EMR. Recommend add 75gm CC diet modification Recommend Daily MVI Recommend 60mL ProMod QD for increased protein needs. RD to continue to monitor. Please notify as additional nutrition concerns arise. Thank you.
[2019-11-15 16:00] VITALS: BP 112/58
--- NOTE | 2019-11-15 18:47 | NUR ---
PT ON VENTI MASK 30% 6l O2 94%, PT DENIES DISTRESS. PT ENCOURAGED TO PRONE AT NIGHT AND USE INCENTIVE SPIROMETER WHILE UP. EDUCATED BY NURSING AND RT.
[2019-11-15 20:00] VITALS: BP 107/61
[2019-11-16 00:20] VITALS: BP 110/66
[2019-11-16] MEDS: ALBUTEROL INHALER 90MCG/INH IH SCH ×5 (03:00→18:27)
[2019-11-16 04:24] VITALS: BP 111/67
[2019-11-16 05:57] LABS: HEMATOCRIT 41.3 % (42-54); MEAN CORPUSCULAR HGB CONC 34.4 g/dL (32.0-36.0); MEAN CORPUSCULAR VOLUME 90.2 fL (79-99); PLATELET COUNT (AUTO) 416 K/uL (130-400); RED BLOOD CELL COUNT(AUTO) 4.58 MIL/uL (4.50-6.20); RED CELL DISTRIBUTION WIDTH 11.9 % (11.0-15.5); WHITE BLOOD COUNT (AUTO) 9.8 K/uL (4.8-10.8)
[2019-11-16 06:42] LABS: ALBUMIN 2.6 g/dL (3.5-5.0); BILIRUBIN,TOTAL 0.4 mg/dL (0.2-1.0); CREATININE 0.9 mg/dL (0.5-1.5); CRP QUANTITATIVE 14.4 mg/L (0.00-9.0); POTASSIUM 3.8 mmol/L (3.5-5.1); TOTAL PROTEIN, SERUM 6.7 g/dL (6.0-8.3)
[2019-11-16 07:31] LABS: EOSINOPHILS % (MANUAL) 1 % (1-6); LYMPHOCYTES % (MANUAL) 16 % (22-44); MONOCYTES % (MANUAL) 24 % (2-9); SEGMENTED NEUTROPHILS % 59 % (40-70)
[2019-11-16 07:32] LABS: MAN.DIFF COMMENT-IMPRESSION MANUAL DIFFERENTIAL; PLATELET MORPHOLOGY COMMENT ADEQUATE
[2019-11-16 08:00] VITALS: BP 154/57
[2019-11-16] MEDS: GUAIFENESIN-CODEINE 5 ML SYRUP PO PRN ×2 (10:16→10:40)
[2019-11-16] MEDS: CHLORDIAZEPOXIDE HCL 25 MG CAP PO SCH ×2 (10:16→20:09)
[2019-11-16] MEDS: DEXAMETHASONE SOD PHOSPHATE 4 MG/ML 1ML VIAL IV SCH ×2 (10:16→20:08)
[2019-11-16] MEDS: NICOTINE 21 MG/ 24 HR PATCH TD SCH (10:17)
[2019-11-16] MEDS: GUAIFENESIN 600 MG TABLET.ER PO SCH ×2 (10:17→20:09)
[2019-11-16] MEDS: ASPIRIN 81MG TAB.CHEW PO SCH (10:17)
[2019-11-16] MEDS: ENOXAPARIN SODIUM 40 MG/0.4 ML SYRINGE SQ SCH ×2 (10:18→20:10)
[2019-11-16] MEDS: PHARMACY COMMUNICATION MISC SCH ×2 (10:19→17:41)
[2019-11-16] MEDS: PANTOPRAZOLE SODIUM 40 MG TABLET.DR PO SCH (10:19)
[2019-11-16 11:00] VITALS: BP 97/56
[2019-11-16 16:00] VITALS: BP 97/57
[2019-11-16 20:00] VITALS: BP 103/56
[2019-11-17] VITALS (7 sets, daily range): BP systolic 93–127; BP diastolic 52–75
[2019-11-17] MEDS: GUAIFENESIN-CODEINE 5 ML SYRUP PO PRN ×2 (00:02→20:04)
[2019-11-17] MEDS: ALBUTEROL INHALER 90MCG/INH IH SCH ×7 (00:04→23:48)
[2019-11-17] MEDS: PHARMACY COMMUNICATION MISC SCH ×3 (00:30→15:40)
[2019-11-17 07:05] LABS: HEMATOCRIT 40.3 % (42-54); MEAN CORPUSCULAR HEMOGLOBIN 30.5 pg (27.0-33.0); MEAN CORPUSCULAR HGB CONC 34.2 g/dL (32.0-36.0); PLATELET COUNT (AUTO) 343 K/uL (130-400); RED BLOOD CELL COUNT(AUTO) 4.53 MIL/uL (4.50-6.20); RED CELL DISTRIBUTION WIDTH 11.9 % (11.0-15.5); WHITE BLOOD COUNT (AUTO) 8.3 K/uL (4.8-10.8)
--- NOTE | 2019-11-17 07:10 | NUR ---
Patient remained stable, bedside report given to incoming NOD using SBAR all questions answered.
[2019-11-17 07:43] LABS: ALBUMIN 2.6 g/dL (3.5-5.0); BILIRUBIN,TOTAL 0.3 mg/dL (0.2-1.0); CREATININE 0.7 mg/dL (0.5-1.5); CRP QUANTITATIVE 14.4 mg/L (0.00-9.0); POTASSIUM 4.1 mmol/L (3.5-5.1); TOTAL PROTEIN, SERUM 6.7 g/dL (6.0-8.3)
[2019-11-17] MEDS: PANTOPRAZOLE SODIUM 40 MG TABLET.DR PO SCH (08:27)
[2019-11-17] MEDS: CHLORDIAZEPOXIDE HCL 25 MG CAP PO SCH ×2 (08:27→20:04)
[2019-11-17] MEDS: NICOTINE 21 MG/ 24 HR PATCH TD SCH (08:28)
[2019-11-17] MEDS: ASPIRIN 81MG TAB.CHEW PO SCH (08:28)
[2019-11-17] MEDS: GUAIFENESIN 600 MG TABLET.ER PO SCH ×2 (08:28→20:05)
[2019-11-17] MEDS: ENOXAPARIN SODIUM 40 MG/0.4 ML SYRINGE SQ SCH ×2 (08:30→20:05)
[2019-11-17] MEDS: DEXAMETHASONE SOD PHOSPHATE 4 MG/ML 1ML VIAL IV SCH ×2 (08:30→20:04)
[2019-11-17 08:47] LABS: LYMPHOCYTES % (MANUAL) 22 % (22-44); MAN.DIFF COMMENT-IMPRESSION MANUAL DIFFERENTIAL; MONOCYTES % (MANUAL) 8 % (2-9); PLATELET MORPHOLOGY COMMENT ADEQUATE; SEGMENTED NEUTROPHILS % 70 % (40-70)
--- NOTE | 2019-11-17 09:18 | NUR ---
DC PLAN NO FAMILY CONTACTS. CALLED PLACE OF WORK NO OTHER PHONE NUMBERS AVAILABLE. ASKED FOR PATIENT TO CALL NO CALL BACK YET. CONDITION GUARDED NOW ON VENTI MASK. 30 % FIO2. Addendum: 11/17/19 at 0920 by KAILYN PIKE RN CM Amended: Links added.
[2019-11-18] VITALS: BP 102/52
[2019-11-18] MEDS: PHARMACY COMMUNICATION MISC SCH ×2 (00:30→08:30)
[2019-11-18] MEDS: ALBUTEROL INHALER 90MCG/INH IH SCH ×6 (03:30→23:00)
[2019-11-18 04:00] VITALS: BP 116/49
[2019-11-18 06:15] LABS: HEMATOCRIT 39.3 % (42-54); MEAN CORPUSCULAR HEMOGLOBIN 31.4 pg (27.0-33.0); MEAN CORPUSCULAR HGB CONC 35.4 g/dL (32.0-36.0); MEAN CORPUSCULAR VOLUME 88.7 fL (79-99); PLATELET COUNT (AUTO) 360 K/uL (130-400); RED BLOOD CELL COUNT(AUTO) 4.43 MIL/uL (4.50-6.20); RED CELL DISTRIBUTION WIDTH 11.9 % (11.0-15.5); WHITE BLOOD COUNT (AUTO) 10.2 K/uL (4.8-10.8)
[2019-11-18 06:36] LABS: ALBUMIN 2.6 g/dL (3.5-5.0); BILIRUBIN,TOTAL 0.3 mg/dL (0.2-1.0); CREATININE 0.7 mg/dL (0.5-1.5); CRP QUANTITATIVE 8.7 mg/L (0.00-9.0); POTASSIUM 4.1 mmol/L (3.5-5.1); TOTAL PROTEIN, SERUM 6.5 g/dL (6.0-8.3)
[2019-11-18 08:00] VITALS: BP 132/66
[2019-11-18 08:23] LABS: LYMPHOCYTES % (MANUAL) 8 % (22-44); MONOCYTES % (MANUAL) 10 % (2-9); REACTIVE LYMPHOCYTES 1 % (0-0); SEGMENTED NEUTROPHILS % 81 % (40-70)
[2019-11-18 08:24] LABS: PLATELET MORPHOLOGY COMMENT ADEQUATE
[2019-11-18] MEDS: ENOXAPARIN SODIUM 40 MG/0.4 ML SYRINGE SQ SCH ×2 (09:52→21:19)
[2019-11-18] MEDS: CHLORDIAZEPOXIDE HCL 25 MG CAP PO SCH (09:52)
[2019-11-18] MEDS: PANTOPRAZOLE SODIUM 40 MG TABLET.DR PO SCH (09:52)
[2019-11-18] MEDS: DEXAMETHASONE SOD PHOSPHATE 4 MG/ML 1ML VIAL IV SCH ×2 (09:52→21:18)
[2019-11-18] MEDS: NICOTINE 21 MG/ 24 HR PATCH TD SCH (09:53)
[2019-11-18] MEDS: ASPIRIN 81MG TAB.CHEW PO SCH (09:53)
[2019-11-18] MEDS: GUAIFENESIN 600 MG TABLET.ER PO SCH ×2 (09:53→21:18)
[2019-11-18] MEDS: GUAIFENESIN-CODEINE 5 ML SYRUP PO PRN ×2 (10:09→21:35)
[2019-11-18 11:00] VITALS: BP 107/59
[2019-11-18 15:00] VITALS: BP 104/46
[2019-11-18 20:50] VITALS: BP 113/44
[2019-11-19 00:01] VITALS: BP 108/53
[2019-11-19] MEDS: ALBUTEROL INHALER 90MCG/INH IH SCH ×6 (03:00→23:00)
[2019-11-19 03:48] VITALS: BP 107/57
[2019-11-19 05:53] LABS: BASOPHILS % (AUTO) 0.2 % (0.0-5.0); HEMATOCRIT 39.1 % (42-54); LYMPHOCYTES % (AUTO) 13.7 % (21.0-51.0); MEAN CORPUSCULAR HEMOGLOBIN 31.2 pg (27.0-33.0); MEAN CORPUSCULAR HGB CONC 35.3 g/dL (32.0-36.0); MEAN CORPUSCULAR VOLUME 88.5 fL (79-99); MONOCYTES % (AUTO) 5.4 % (3.0-13.0); NEUTROPHILS % (AUTO) 79.2 % (40.0-77.0); PLATELET COUNT (AUTO) 341 K/uL (130-400); RED BLOOD CELL COUNT(AUTO) 4.42 MIL/uL (4.50-6.20); WHITE BLOOD COUNT (AUTO) 10.3 K/uL (4.8-10.8)
[2019-11-19 06:09] LABS: ALBUMIN 2.6 g/dL (3.5-5.0); BILIRUBIN,TOTAL 0.3 mg/dL (0.2-1.0); CREATININE 0.8 mg/dL (0.5-1.5); CRP QUANTITATIVE 7.2 mg/L (0.00-9.0); POTASSIUM 4.3 mmol/L (3.5-5.1); TOTAL PROTEIN, SERUM 6.4 g/dL (6.0-8.3)
[2019-11-19 07:00] VITALS: BP 101/56
--- NOTE | 2019-11-19 08:00 | NUR ---
RECEIVED PATIENT ON PRONE POSITION WITH O2 AT 2L PER NASAL CANNULA. PATIENT VOICED THAT HE FEELS MUCH BETTER. HIS GOAL IS TO BE OFF O2. FULL ASSESSMENT DONE. HE SAYS HE WILL TRY TO PRONE MORE TODAY. CALL LIGHT WITHIN REACH.
[2019-11-19] MEDS: DEXAMETHASONE SOD PHOSPHATE 4 MG/ML 1ML VIAL IV SCH ×2 (08:11→20:38)
[2019-11-19] MEDS: NICOTINE 21 MG/ 24 HR PATCH TD SCH (08:11)
[2019-11-19] MEDS: GUAIFENESIN 600 MG TABLET.ER PO SCH ×2 (08:11→20:39)
[2019-11-19] MEDS: PANTOPRAZOLE SODIUM 40 MG TABLET.DR PO SCH (08:11)
[2019-11-19] MEDS: ASPIRIN 81MG TAB.CHEW PO SCH (08:11)
[2019-11-19] MEDS: ENOXAPARIN SODIUM 40 MG/0.4 ML SYRINGE SQ SCH ×2 (08:12→20:39)
[2019-11-19 11:00] VITALS: BP 110/84
[2019-11-19] MEDS: GUAIFENESIN-CODEINE 5 ML SYRUP PO PRN ×2 (11:20→16:30)
--- NOTE | 2019-11-19 11:41 | NUR ---
DC PLAN PATIENT IN COVID UNIT. CALLED ROOM ANSWERED PHONE. VERY SHORT OF BREATH. ANSWERED QUESTIONS SAID LIVES WITH GIRLFRIEND. NO SERVICES OR DME AT HOME. FEELS SAFE TO RETURN HOME. GAVE VERBAL CONSENT TO SEND FOR 02 TO [facility] PATIENT ONCE PATIENT STABLE TO DC HOME. Addendum: 11/19/19 at 1143 by KAILYN PIKE RN CM Amended: Links added.
--- NOTE | 2019-11-19 13:00 | NUR ---
DR. PABLO IS MAKING ROUNDS OUTSIDE OF PATIENT'S ROOM. INFORMED MD THAT PATIENT IS ALREADY ON 2L AND WITH STABLE O2 SATS. MD SAID THAT PULMO WILL SIGN OFF.
--- NOTE | 2019-11-19 13:30 | NUR ---
DR. RAMACHANDRAN CONDUCTED HIS ROUNDS VIA TELEMEDICINE. INFORMED MD THAT PATIENT IS ON 2L PER N/C. D/C PLANNING FOR TOMORROW OR THE NEXT DAY.
[2019-11-19 15:00] VITALS: BP 118/40
[2019-11-19 20:26] VITALS: BP 140/65
[2019-11-20] VITALS (7 sets, daily range): BP systolic 94–142; BP diastolic 52–66
[2019-11-20] MEDS: GUAIFENESIN-CODEINE 5 ML SYRUP PO PRN (00:03)
[2019-11-20] MEDS: ALBUTEROL INHALER 90MCG/INH IH SCH ×6 (03:14→23:07)
[2019-11-20] MEDS: DEXAMETHASONE SOD PHOSPHATE 4 MG/ML 1ML VIAL IV SCH ×2 (08:53→21:11)
[2019-11-20] MEDS: ASPIRIN 81MG TAB.CHEW PO SCH (08:54)
[2019-11-20] MEDS: GUAIFENESIN 600 MG TABLET.ER PO SCH ×2 (08:54→21:11)
[2019-11-20] MEDS: PANTOPRAZOLE SODIUM 40 MG TABLET.DR PO SCH (08:54)
[2019-11-20] MEDS: ENOXAPARIN SODIUM 40 MG/0.4 ML SYRINGE SQ SCH ×2 (08:55→21:12)
[2019-11-20] MEDS: NICOTINE 21 MG/ 24 HR PATCH TD SCH (14:48)
[2019-11-21] MEDS: ALBUTEROL INHALER 90MCG/INH IH SCH ×4 (03:06→15:33)
[2019-11-21 04:44] VITALS: BP 113/69
[2019-11-21 08:45] VITALS: BP 137/74
[2019-11-21] MEDS: PANTOPRAZOLE SODIUM 40 MG TABLET.DR PO SCH (09:08)
[2019-11-21] MEDS: ASPIRIN 81MG TAB.CHEW PO SCH (09:08)
[2019-11-21] MEDS: ENOXAPARIN SODIUM 40 MG/0.4 ML SYRINGE SQ SCH (09:09)
[2019-11-21] MEDS: GUAIFENESIN 600 MG TABLET.ER PO SCH (09:09)
[2019-11-21] MEDS: DEXAMETHASONE SOD PHOSPHATE 4 MG/ML 1ML VIAL IV SCH (09:09)
[2019-11-21] MEDS: NICOTINE 21 MG/ 24 HR PATCH TD SCH (09:09)
[2019-11-21 11:35] VITALS: BP 104/52
[2019-11-21 16:07] VITALS: BP 101/60
[2019-11-21] MEDS ORDERED: DEXA6TAB PO (16:36)
[2019-11-21] MEDS ORDERED: APIX2.5T PO (16:36)
[2019-11-21] MEDS ORDERED: ALBUHFA IH (16:36)
--- NOTE | 2019-11-21 17:42 | NUR ---
Provided pt with discharge instructions. Educated on discharge medications and instructed to order picker at [facility], pt preferred pharmacy. Pt informed to start all discharge medication on 11/21 in the AM. Pt verbalized understanding. Educated to continue to quarantine and social distant x21 days a per MD order, wear a mask if/when around others, and good hand hygiene. F/U with PCP x1 week via telemedicine. Pt verbalized understanding. IV and tele removed. Pt will be discharged when transportation arrives.
== END 2019-11-21 18:00 | disposition home or self-care (01) | DRG 177 ==
LOC: EDH 18:48 → EDHIP 18:49 → 4CH 11-10 00:50 → 2DH 11-13 16:13
PROVIDERS: ADMIT Internal Medicine; ATTEND Internal Medicine
PROC: 30233K1 Transfusion of Nonautologous Frozen Plasma into Peripheral Vein, Percutaneous Approach (ICD-10-PCS; principal; 2019-11-08)
DX: U07.1 COVID-19 (principal); J96.01 Acute respiratory failure with hypoxia; J12.89 Other viral pneumonia; E87.1 Hypo-osmolality and hyponatremia; J44.1 Chronic obstructive pulmonary disease with (acute) exacerbation; J44.0 Chronic obstructive pulmonary disease with (acute) lower respiratory infection; F17.200 Nicotine dependence, unspecified, uncomplicated; E11.9 Type 2 diabetes mellitus without complications; E66.9 Obesity, unspecified; Z68.39 Body mass index [BMI] 39.0-39.9, adult; Z88.0 Allergy status to penicillin; Z83.3 Family history of diabetes mellitus
CPT/HCPCS: 0099U; 36415; 36430; 36600; 71045; 71275; 80053; 80061; 81001; 82550; 82728; 82803; 82948; 83036; 83605; 83615; 83735; 83874; 83880; 84145; 84443; 84478; 84484; 85025; 85378; 85384; 85610; 86140; 86850; 86900; 86901; 86927; 87040; 87449; 87486; 87581; 87633; 87798; 87804; 87880; 93005; 93970; G0378; J0696; J1100; J1650; J1956; J2405; J2920; J2930; J3490; J7030; J7050; P9017; Q0163; Q9967; U0003

== ENCOUNTER 2022-03-09 11:15 | Emergency (ER) | payer BC ==
[~2022-03-09] VITALS: Ht 167.6 cm; Wt 98.0 kg
[~2022-03-09 11:15] MED LIST: ALBUHFA IH; APIX2.5T PO; DEXA6TAB PO
[2022-03-09 11:44] LABS: BASOPHILS % (AUTO) 0.2 % (0.0-5.0); EOSINOPHILS % (AUTO) 3.6 % (0.0-8.0); HEMATOCRIT 44.3 % (42-54); LYMPHOCYTES % (AUTO) 24.9 % (21.0-51.0); MEAN CORPUSCULAR HEMOGLOBIN 30.4 pg (27.0-33.0); MEAN CORPUSCULAR HGB CONC 34.1 g/dL (32.0-36.0); MEAN CORPUSCULAR VOLUME 89.1 fL (79-99); MONOCYTES % (AUTO) 7.9 % (3.0-13.0); NEUTROPHILS % (AUTO) 63.2 % (40.0-77.0); PLATELET COUNT (AUTO) 306 K/uL (130-400); RED BLOOD CELL COUNT(AUTO) 4.97 MIL/uL (4.50-6.20); RED CELL DISTRIBUTION WIDTH 12.5 % (11.0-15.5); WHITE BLOOD COUNT (AUTO) 8.4 K/uL (4.8-10.8)
[2022-03-09 11:51] LABS: CREATININE 0.7 mg/dL (0.5-1.5); POTASSIUM 3.7 mmol/L (3.5-5.1)
[2022-03-09 11:58] LABS: ALBUMIN 3.7 g/dL (3.5-5.0); APPEARANCE,URINE CLEAR (CLEAR); BILIRUBIN,URINE NEGATIVE (NEGATIVE); COLOR,URINE COLORLESS (YELLOW); GLUCOSE, URINE (UA) NEGATIVE (NEGATIVE); KETONES,URINE NEGATIVE (NEGATIVE); LEUKOCYTE ESTERASE ,URINE NEGATIVE Leu/uL (NEGATIVE); NITRATE,URINE NEGATIVE (NEGATIVE); OCCULT BLOOD,URINE NEGATIVE (NEGATIVE); PROTEIN,URINE NEGATIVE (NEGATIVE); TOTAL PROTEIN, SERUM 8.3 g/dL (6.0-8.3); UROBILINOGEN,URINE 0.2 mg/dL (0.2-1.0)
[2022-03-09 12:21] LABS: INR 0.93 (0.85-1.15); PROTHROMBIN TIME 9.9 SEC (9.6-11.6)
[2022-03-09 12:22] LABS: PARTIAL THROMBOPLASTIN TIME 25.4 SEC (26.3-35.5)
[2022-03-09] MEDS ORDERED: IOHEXOL 350 MG/ML 100ML INFUS..BTL IV ONE (14:07)
[2022-03-09 14:41] VITALS: BP 156/76
[2022-03-09] MEDS ORDERED: MAGN296S73 PO (14:52)
[2022-03-09] MEDS ORDERED: DOCU-116 PO (14:52)
== END 2022-03-09 14:59 | disposition home or self-care (01) ==
LOC: EDH 11:15
DX: K92.2 Gastrointestinal hemorrhage, unspecified (principal); Z79.899 Other long term (current) drug therapy
CPT/HCPCS: 74177; 99284; 82270; 80053; 85025; 85610; 85730; 86850; 86900; 86901; 81003; 36415; 74018; Q9967